=== PATIENT | female | born 1945 | race Caucasian/White ===

== ENCOUNTER 2023-09-04 07:20 | Inpatient (IN) | payer MEDICARE, BC, SELFPAY ==
--- NOTE | 2023-08-28 08:08 | HPS.HSE ---
Family Physician
-
Family Physician: KANDI GOMEZ MD
Chief Complaint
-
SOB, fatigue, and dizziness
History of Present Illness
Ms. Mccullough is a very pleasant 78 yof that presents with severe symptomatic aortic stenosis associated with DEJESUS, fatigue, and dizziness. Her echocardiogram from 05/27/2023 is notable for an aortic valve P/M 68/42, DIONISIO 0.86, pk mayito 4.1, DI 0.3, EF
60%, MAC with mild MR, PAP 47. Her cardiac catheterization from 07/18/2023 is significant for top normal filling pressures with no pulmonary hypertension, severe aortic stenosis with mean gradient 38 mmHg and calculated DIONISIO 0.7 cm�, no CAD. From a
symptomatology standpoint, Ms. Mccullough describes a progressive increase in SOB and fatigue. She is unable to climb stairs or walk a distance without needing to stop and rest. Ms. Wheeler also c/o of intermittent dizziness d/t hx of vertigo. Patient
has been evaluated by the heart team and recommended form TF TAVR utilizing a 29mm Evolut valve. Assessed in preadmission testing and instructed last dose of Xarelto (09/01), Aspirin 325 mg (09/02), aspirin 81 mg (09/03, 09/04), she can also take
levothyroxine (09/04) prior to coming in. Ms. Mccullough (+) UTI and started on 100 mg Macrobid PO BID x 5 days. Instructed to come to the [facility] at 0730. She should expect a phone call from the heart team on Friday (09/03) to confirm time and
location of arrival. Reviewed Risks of procedure as discussed with Dr. Friedman in consult including ppm, stroke, and vascular injury. Allowed for and answered questions.
Medical History
Past Medical History
Past Medical History: Reports Arrhythmia (A-fib), CAD, Hypothyroidism, Valvular Disease (, MR) and Other (arthritis, depression, anxiety)
Past Surgical History: Reports Bowel Resection, Cholecystectomy and Orthopedic ((R) TKR, (R) THR)
Additional Past Surgical History:
cardiac ablation (2016, 2017), Loop recorder
Social History
Tobacco: Former Smoker
Alcohol: Occasional
Drug: None
Living: Alone
Family History
Family History: Not pertinent
Allergies / Home Medications
Allergies reflects when Allergies were last updated in [facility] ([place]).
Home Medications with original date entered in [facility] ([place])
Allergy/Medication List:
PriLOSEC, Crestor, Lexapro, Lipitor, Mevacor, Pravachol: muscle weakness,
PROzac: diarrhea,
Zocor: muscle weakness
Review of Systems
-
History Source: Patient and Family (DAUGHTER)
Constitutional: Reports Fatigue
EENT: Reports No Symptoms
Respiratory: Reports No Symptoms
Cardiac: Reports Chest Pain
Abdomen/GI: Reports No Symptoms
: Reports Other (c/o a 'warm' feeling occasionally when she urinates)
Musculoskeletal: Reports No Symptoms
Neurological: Reports No Symptoms
Psych: Reports Anxiety
Physical Exam
Physical Exam
General: Well Developed, Well Nourished and No Apparent Distress
HEENT: NormoCephalic and Moist mucous membranes
Respiratory: Clear
Cardiac: Regular Rhythm and Murmur (III/ GAYLE)
Breast: Deferred by me
Rectal: Deferred by Provider
Genito-urinary: Deferred by me
Skin: Warm and Dry
Neuro: Awake, Alert and Oriented
Psych: Anxious
Laboratory Results
-
08/21/23 12:00
08/21/23 12:00
Laboratory Results
PT Cancelled 08/21/23 12:00
INR Cancelled 08/21/23 12:00
APTT Cancelled 08/21/23 12:00
Total Bilirubin Cancelled 08/21/23 12:00
AST Cancelled 08/21/23 12:00
ALT Cancelled 08/21/23 12:00
Alkaline Phosphatase Cancelled 08/21/23 12:00
Data Reviewed
-
CT Scan: Report Reviewed by me and Discussed with Physician (TAVR CT scan reviewed with the heart team)
Lab Data: Labs Reviewed by me
Old Records: Reviewed (Drs. Hayes and Idalia's office visit)
Impression/Plan
-
IMPRESSION: Severe Aortic Stenosis
PLAN:
Transfemoral TAVR planned for 09/04/2023
Last dose Xarelto 09/01
Aspirin while Xarelto held (325mg (09/02), 81mg (09/03,09/04). Aspirin will be d/c when xarelto resumed
POD#1 echocardiogram
Cardiac rehab consult.
[2023-08-28 12:17] VITALS: BMI 24.8
[2023-08-28 13:06] LABS: % Basophils 1.4 % (0-2); % Eosinophils 3.8 % (0-6); % Immature Granulocytes 0.4 % (0-0.5); % Lymphocytes 20.4 % (20.5-51.1); % Monocytes 12.3 % (1.7-9.3); % Neutrophils 61.7 % (42.2-75.2); Absolute Basophils 0.1 10^3/uL (0-0.2); Absolute Eosinophils 0.3 10^3/uL (0-0.7); Absolute Lymphocytes 1.6 10^3/uL (1.2-3.4); Absolute Neutrophils 4.8 10^3/uL (1.4-6.5); Hematocrit 26.9 % (37.0-47.0); Hemoglobin 8.9 g/dL (12.0-16.0); Mean Corp Hgb Conc. 33.1 g/dL (33.0-37.0); Mean Corpuscular Hgb 28.5 pg (27.0-31.0); Mean Corpuscular Volume 86.2 fL (81.0-99.0); Mean Platelet Volume 8.7 fL (7.4-10.4); Nucleated Red Blood Cells % 0 %; Platelet Count 254 10^3/uL (130-400); Red Blood Cell Count 3.12 10^6/uL (4.20-5.40); Red Cell Dist. Width 14.2 % (11.5-14.5); White Blood Cell Count 7.8 10^3/uL (4.8-10.8)
[2023-08-28 13:07] LABS: Urine Albumin Negative (Neg - Trace); Urine Bilirubin Negative (Negative); Urine Character Clear (Clear); Urine Color Yellow; Urine Glucose Negative (Negative); Urine Ketone Negative (Negative); Urine Leukocyte 2+ (Negative); Urine Nitrite Negative (Negative); Urine Occult Blood Negative (Negative); Urine Urobilinogen Negative (Neg - 1+)
[2023-08-28 13:17] LABS: INR 1.42; PT 17.5 Sec (11.4-14.6)
[2023-08-28 13:19] LABS: ALT (SGPT) 18 U/L (0-35); AST (SGOT) 31 U/L (14-36); Alkaline Phosphatase 119 U/L (38-126); Blood Urea Nitrogen 15 mg/dl (7-17); Calcium 8.7 mg/dl (8.4-10.2); Carbon Dioxide 28 mmol/L (22-30); Chloride 98 mmol/L (98-107); Direct Bilirubin 0.5 mg/dl (0.0-0.4); Estimated Creatinine Clearance 57 ml/min; Glucose 93 mg/dl (70-99); Potassium 4.1 mmol/L (3.5-5.1); Sodium 132 mmol/L (135-145); Total Bilirubin 0.5 mg/dl (0.2-1.3); Total Protein 5.4 g/dl (6.3-8.2); eGFR > 60.00
[2023-08-28 13:27] LABS: NT-proBNP 931 pg/ml
[2023-08-28 14:06] LABS: Urine Bacteria Moderate (Negative); Urine Red Blood Cell 0-2 /HPF (0-2)
[2023-08-28 14:17] LABS: Glycohemoglobin (HgbA1c) 5.3 % (4.0-5.6)
--- NOTE | 2023-08-28 14:19 | CM ---
Met with Mrs. Mccullough and her daughter in [facility]'s. She states prior to admission she resides alone in a cottage with one step to enter. She resides at [facility]. She resides in the independent section of [facility]. She
states prior to admission she is independent with ambulation in the cottage but uses a single point cane in the community. She states she is independent with ADLS. She states she has a single point cane, walker and rollator at home. She states
she has a prescription plan and uses [facility]. The discharge plan is to return home with a home visit by the Cardiothoracic Transitional Care Nurse when medically stable.
We reviewed pre-op and post-op routines. We reviewed the shower instructions. She has the shower instructions, soap and the TAVR Educational Booklet. We also reviewed restrictions including driving and lifting restrictions. We also discussed a
home visit by the Cardiothoracic Transitional Care Nurse. She is agreeable to a home visit. The plan is for TAVR on 09/04/23.
[2023-09-04] VITALS (25 sets, daily range): BP systolic 100–167; BP diastolic 75–109; BMI 24.3
[2023-09-04] MEDS: STERILE WATER FOR INJECTION 16 ML IV (09:50)
[2023-09-04] MEDS: ZINACEF 1500 MG IV (09:50)
[2023-09-04 11:10] LABS: ACT-LR - POC 279 Seconds (116-155)
[2023-09-04 11:27] LABS: ACT-LR - POC 268 Seconds (116-155)
[2023-09-04 11:38] LABS: ACT-LR - POC 277 Seconds (116-155)
--- NOTE | 2023-09-04 11:45 | CM ---
Chart reviewed. Patient is in the OR today. Patient is independent of ADLS, lives in the Independent Living at [facility], ambulates with a SPC in the community and also has a walker and rollator at home if needed. Plan is
for the patient to return home with CT Transitional RN. CM to follow
--- NOTE | 2023-09-04 11:54 | ITS.CL.TAVR ---
Cv Tech - TAVR Report
TAVR PRocedure
Procedure Report:
TRANSCATHETER AORTIC VALVE REPLACEMENT REPORT
Date: 09/04/2023
Referring physician: Damaris Hassan MD
Operators: Oscar Tee MD, George Escobar MD
Procedure: Conscious sedation was provided by anesthesia. Due to a low left coronary height of 9.6 mm, we planned to protect the left main coronary with a guide catheter, guide liner coronary guidewire down the LAD. Our plan was to put the pigtail
catheter via left radial artery access then the coronary guide catheter via left femoral artery access and the device via right femoral artery access.
Using a micropuncture technique, arterial access was obtained in the left radial artery. We were unable to advance the soft guidewire more than 40-50 mm and removed the wire and held manual pressure. We then reattempted and easily obtained brisk
arterial flow but once again could not advance the soft guidewire more than about 50 mm and decided to abandon the left radial artery approach. We decided to place dual 6 Gibraltarian sheaths in the left femoral artery. A 6 Gibraltarian sheath was placed in
the left femoral artery using the micropuncture technique and angiography demonstrated a superior common femoral artery puncture site. A 6 Gibraltarian left femoral venous sheath was placed. At this point we placed a second 6 Gibraltarian sheath in the left
femoral artery using a more inferior common femoral artery site for puncture.
6F LFV and LFA sheaths were placed. Injection into the LFA sheath was performed to confirm a common femoral artery puncture site. A transvenous pacemaker was placed into the RV apex with excellent thresholds. A pigtail catheter was advanced to the
aortic root and low-volume injections performed to identify a co-planer angle for valve deployment. Access was then obtained in the RFA using the micropuncture technique. Injection into the RFA sheath was performed to confirm a common femoral artery
puncture site. Heparin XX units was administered. At this point, two Perclose sutures were preset using the preclose technique. We then placed an 8 Gibraltarian sheath. A 14 Gibraltarian sheath was exchanged into the RFA.Heparin XX units was administered. The
valve was crossed with an AL 1 diagnostic catheter and a straight wire. A Confida wire was advanced into the LV apex. The 14 F sheath was removed and exchanged for a XXmm Medtronic Evolute pro valve with in-line sheath. The valve was carefully
advanced around the aortic arch and across the valve. Once ideal valve positioning was confirmed, the valve was very slowly deployed with ventricular pacing at 80-100 per minute. The result was evaluated with both aortography and echocardiography
which demonstrated an excellent result. The valve deployment system was removed and the hemostasis achieved with the 2 Perclose sutures and an 8 Gibraltarian Angio-Seal. Angiography of the right iliofemoral system was accomplished and showed no evidence
of significant dissection or perforation with good runoff below the femoral bifurcation. The more superior LFA sheath was removed with a 6 Gibraltarian Angio-Seal. We then did an angiogram showing excellent distal runoff and placed a second Angio-Seal to
close the more distal left common femoral artery puncture site. The pacemaker was removed and the LFV sheath removed with manual compression.
Radiation
Dose (mGy): 459
DAP (cm2.Gy): 30.9
Fluoroscopy time: 6.8 minutes
Conclusion: Successful placement of 29 mm CoreValve Evolute Pro using a right percutaneous transfemoral approach with no acute complications
Oscar Tee M.D.
Copy : Damaris Hassan MD, Sandra Luevano MD
--- NOTE | 2023-09-04 11:54 | W.CVOR.SURPR ---
CVOR Surgeon Immed Pre Op
-
I have examined this patient prior to performance of the scheduled procedure.
The patient's condition is unchanged from the time of the dictated/written History and
Physical and the patient is able to undergo the scheduled procedure.
--- NOTE | 2023-09-04 11:55 | W.IMMPOSTOP ---
Surgical Immed Post Op Note
-
Dictated: [id number]
STRUCTURAL HEART PROCEDURE NOTE: TAVR
Preoperative Dx:
Severe aortic stenosis (P/M 68/42, DIONISIO 0.9), moderate AI
Mild MR
AF
Hypothyroidism
GERD
Anxiety
Postoperative Dx:
Same
Procedures:
1) L CFV access w/ fluoroscopic guidance, micropuncture technique, 6Fr sheath placement
2) L ASSOCIATE PROFESSOR OF AUTOMATION access w/ tactile & fluoroscopic guidance, micropuncture technique, 6Fr sheath placement, limited angiography
3) Attempted L RA access (aborted)
4) L ASSOCIATE PROFESSOR OF AUTOMATION (lower) access w/ tactile & fluoroscopic guidance, micropuncture technique, 6Fr sheath placement
5) Placement of temporary RV pacing wire, threshold testing
6) Placement of pigtail catheter in NCC w/ aortography & confirmation of near-cusp overlap view
7) R ASSOCIATE PROFESSOR OF AUTOMATION access w/ fluoroscopic guidance, micropuncture technique, 8Fr dilator placement, limited angiography
8) Perclose placement x 2 into R ASSOCIATE PROFESSOR OF AUTOMATION, 8Fr sheath placement
9) Serial dilation of R ASSOCIATE PROFESSOR OF AUTOMATION w/ placement of 14Fr COOK sheath (systemic heparinization)
10) Fluoroscopic inspection of TAVR valve
11) Protection of LM coronary via lower L ASSOCIATE PROFESSOR [employer] AUTOMATION access
12) Wire purchase across stenotic AV (AL-1, soft-tip straight, J-wire, pigtail, riveraerquist) w/ LVEDP assessment (20mmHg)
13) R TF TAVR w/ placement of 29mm EVOLUT FX (single deployment)
14) Completion aortography
15) Completion TTE (mean gradient 6mmHg, no AI/PVL)
16) Removal of coronary protection
17) Removal of yjyja-vfdxgxjy-wwyxqb w/ R ASSOCIATE PROFESSOR OF AUTOMATION mgmt w/ perclose sutures x 2, 8Fr angioseal, manual pressure; completion angiography
18) Removal of lower L ASSOCIATE PROFESSOR [employer] AUTOMATION access w/ mgmt w/ 6Fr angioseal, manual pressure; completion angiography through upper L ASSOCIATE PROFESSOR OF AUTOMATION access
19) Removal of upper L ASSOCIATE PROFESSOR OF AUTOMATION access w/ mgmt w/ 6Fr angioseal, manual pressure
20) Removal of temporary pacing wire, L CFV sheath w/ manual pressure (protamine)
Critical Care Cns:
Dr. Flaquito Tee
Cardiac Surgeon:
Dr. George Escobar
Anesthesia:
MAC & local to B/L groins
Implants:
Perclose sutures x 2
8Fr angioseal x 1
6Fr angioseal x 2
Medtronic Evolut FX 29mm valve; SN: [id number]
Cath Data:
Start: 1029hrs, Deploy: 1128hrs, End: 1148hrs
FT: 11.9min, mGy: 188.21, DAP: 26.1439, Contrast: 103mL
Post TTE: mean gradient 6mmHg, no AI/PVL
Condition:
Stable/guarded to recovery
--- NOTE | 2023-09-04 12:23 | W.PN.UPDATE ---
Update Note
Progress Note Update
Reviewed Ms. Mccullough with the heart team in the preTAVR SDM meeting and confirmed a 29mm Evolut via transfemoral access. Patient will resume Xarelto post TAVR. LVEDP 21mmHg. #29mm Evolut (serial# [id number]) successfully deployed via right transfemoral
access. Post implant MG 6mmHg.
[2023-09-04] MEDS: STERILE WATER FOR INJECTION IV (12:57)
[2023-09-04] MEDS: ZINACEF IV (12:57)
--- NOTE | 2023-09-04 13:30 | PTCARENOTE ---
Pt received from open hearth laborer s/p TAVR. Pt assisted from stretcher to IVU bed. Pt drowsy but oriented x4. CYR with equal strength in all extremities. No facial droop or tongue deviation. PERRLA 3mm brisk bilaterally. SR with 1st degree AVB with rates in
the 60s. BP stable 122/80. +murmur. Bilateral radial and DP pulses palpable. Trace edema in b/l lower extremities. POX 98% on RA. Lungs clear. Abdomen soft, nontender. +BS. DTV for this RN. Tolerating sips of water and ice chips. Right groin
dressing CDI, small moveable lump unchanged from open hearth laborer RN's assessment. Left groin dressing CDI and soft. Pt c/o 12/21 back pain-see MAR. Denies nausea. Right AC 20g PIV intact. Pt's daughter at bedside. See MAR for medication administration. See
worklist for complete nursing assessment. Plan of care and expected ambulation time reviewed with patient and daughter.
[2023-09-04] MEDS: TYLENOL 650 MG PO (13:42)
[2023-09-04] MEDS: NEURONTIN 200 MG PO ×2 (16:11→21:19)
[2023-09-04] MEDS: DILAUDID 0.25 MG IV (16:11)
[2023-09-04] MEDS: PACERONE 100 MG PO (17:25)
[2023-09-04] MEDS: STERILE WATER FOR INJECTION 8.30000000000000071 ML IV (17:25)
[2023-09-04] MEDS: LAMICTAL 25 MG PO (17:25)
[2023-09-04] MEDS: ZINACEF 750 MG IV (17:26)
[2023-09-04] MEDS: LASIX PO (20:04)
[2023-09-04] MEDS: PROTONIX 40 MG PO (21:19)
[2023-09-04] MEDS: PEPCID 40 MG PO (21:19)
[2023-09-05] VITALS (13 sets, daily range): BP systolic 82–139; BP diastolic 52–77; BMI 24.4
[2023-09-05] MEDS: REFRESH EYE DROPS (PF) 1 DROPS BOTH EYES (00:42)
[2023-09-05] MEDS: TYLENOL 650 MG PO ×2 (03:37→19:33)
[2023-09-05] MEDS: XANAX 0.25 MG PO ×2 (03:39→20:14)
[2023-09-05 03:52] LABS: Hematocrit 22.6 % (37.0-47.0); Hemoglobin 7.4 g/dL (12.0-16.0); Mean Corp Hgb Conc. 32.7 g/dL (33.0-37.0); Mean Corpuscular Hgb 27.6 pg (27.0-31.0); Mean Corpuscular Volume 84.3 fL (81.0-99.0); Mean Platelet Volume 9.1 fL (7.4-10.4); Platelet Count 213 10^3/uL (130-400); Red Blood Cell Count 2.68 10^6/uL (4.20-5.40); Red Cell Dist. Width 14.5 % (11.5-14.5); White Blood Cell Count 7.3 10^3/uL (4.8-10.8)
--- NOTE | 2023-09-05 03:52 | PTCARENOTE ---
Pt. remains AAOx3, neurochecks WNL, VSS. Bilateral femoral dressing CDI with no S&S hematoma, pedal pulses palpable. No complaints CP, does have generalized weakness with ambulation (assist x 1 with quad cane). NSR on the monitor with frequent
PVC's/PAC's, rate 40's-80's. Michael Valetnine notified of bradycardia and ectopy, came to bedside to assess, magnesium level added to AM labs, Cardizem PO placed on hold. Pt. also visibly anxious/complaining of anxiety, Xanax ordered and
administered. Pt. currently sleeping.
[2023-09-05 04:08] LABS: Blood Urea Nitrogen 9 mg/dl (7-17); Calcium 8.1 mg/dl (8.4-10.2); Carbon Dioxide 25 mmol/L (22-30); Chloride 108 mmol/L (98-107); Estimated Creatinine Clearance 65 ml/min; Glucose 92 mg/dl (70-99); Magnesium 2.1 mg/dl (1.6-2.3); Sodium 133 mmol/L (135-145); eGFR > 60.00
--- NOTE | 2023-09-05 05:19 | W.PN.CT ---
Addendum entered and electronically signed by George Escobar MD 09/05/23 08:02:
I saw and examined the patient.
The PA's note was reviewed and I agree with the note.
Comment:
POD#1
No major overnight events. New RBBB w/ bradycardia. AVSS. Groins OK. CXR: clear w/ chronic elevation of right hemidiaphragm. 7.3>7.4 (8.9)<213; 9/0.7
- Transfuse 1U PRBC
- Echocardiogram today
- Xarelto only anticoagulation
- Hold Cardizem, hold amiodarone
- Will arrange for outpt HR monitor on D/C
- Would hold on D/C today, hopefully tomorrow
Original Note:
Today's Communication / Plan
-
-pod #1
-c/o dizziness walking to the bathroom this am, reported feeling anxious. BP was ok 108/60
-Rhythm noted to be sinus sally 48 bpm with PVCs, PACs (few non-conducted PACs), no significant pauses- will hold am Cardizem and discuss with Cardiology
-new RBBB post TAVR and pre-existing 1st degree AVB
-h/h 7.4/22.6 today (8.9/26.9 preop)- consider 1 pRBC. Groins are stable, soft, no hematoma b/l
-Echo today
-current meds (Xarelto, Lasix 40 bid, Amio 100 hs, Protonix). Will hold Cardizem CD in am for sally 40s
-encourage IS, OOB, ambulate
-possible d/c
Assessment / Plan
-
- Severe symptomatic - s/p R TF TAVR w/ placement of 29mm Medtronic EVOLUT FX (single deployment) on 09/04/23, pod #1
- Post TTE: mean gradient 6mmHg, no AI/PVL
- Mild MR
- Paroxysmal a-fib, s/p CV/ablation x2 - on Xarelto and Amio preop
- Pre-existing 1st degree AVB
- Chronic diastolic CHF
- Hypothyroidism
- GERD
- Anxiety
- Hard of hearing, wears hearing aides
- Hx tobacco, quit 1980
- Acute postop RBBB
Discussed patient care with: Nursing and Care Team
Subjective
Procedure
s/p R TF TAVR w/ placement of 29mm Medtronic EVOLUT FX (single deployment) on 09/04/23
-
Date of Service: September 05, 2023
Objective Data
-
PT 17.5 Sec (11.4-14.6) H 08/28/23 12:46
INR 1.42 08/28/23 12:46
APTT 42.0 Sec (23.4-35.0) H 08/28/23 12:46
Vital Signs
Vital Signs
Temp Pulse Resp BP Pulse Ox
97.8 F 85 20 131/83 97
09/04/23 23:02 09/04/23 23:00 09/04/23 23:02 09/04/23 22:49 09/04/23 23:39
CT Intake/Output/Weight
09/04/23 09/04/23 09/05/23
06:59 18:59 06:59
Intake Total 2290 / 2290
Output Total 300 / 300
Balance 1989
SaO2: 97
Physical Exam
-
General: Awake and AOx3
Cardiovascular: Regular rate & rhythm, Murmur (1/6 syst @ lsb) and No Rub
Respiratory: Rales (at L base. No wheeze)
Incision: Other (groins are cdi, soft, nontender, no hematoma b/l)
Extremities: Edema +1 (2+ DP b/l)
Data Reviewed
-
Lab Results: Results Reviewed
Medications: Active Meds Reviewed
Chest X-Ray: Report Reviewed and Image Reviewed
ECG: Report Reviewed and Image Reviewed
--- NOTE | 2023-09-05 07:28 | W.PN.ANS.POP ---
Anesthesia Post Operative
- Anesthesia Post Op Note
Vital Signs Stable-See Nursing Note: Yes
Airway Patent: Yes
Adequate Pain Control: Yes
Change in Mental Status: No
Current Postoperative Nausea & Vomiting: No
Anesthesia Complications: No
General Anesthetic Recall: No
Unplanned Admission: No
Post Op Hydration Adequate: Yes
[2023-09-05] MEDS: PROTONIX 40 MG PO ×2 (07:56→19:33)
[2023-09-05] MEDS: LAMICTAL 50 MG PO (07:56)
[2023-09-05] MEDS: THERAGRAN 1 TABLET PO (07:56)
[2023-09-05] MEDS: VITAMIN D3 (cholecalciferol) PO (09:52)
[2023-09-05] MEDS: NEURONTIN PO (09:52)
[2023-09-05] MEDS: LASIX PO ×2 (09:53→19:31)
[2023-09-05] MEDS: SYNTHROID 50 MCG PO (12:59)
--- NOTE | 2023-09-05 13:20 | ITS.CL.PACE ---
Marketing Reporting Analyst - Pacemaker Implant
Pacemaker Implant
Procedure Report:
Date of Procedure: September 05, 2023.
Procedure: Dual chamber conduction system (Left Bundle Branch area) Pacemaker Implantation. Left upper extremity venogram. Loop explant.
Indication: The pacemaker is for the treatment of nonreversible symptomatic bradycardia due to second degree atrioventricular block. Yesterday the patient underwent placement of 29 mm CoreValve Evolute Pro�Medtronic transcatheter aortic valve
complicated by first-degree AV block and right bundle branch block with pre-existing left axis deviation. Conduction system disease progressed. She developed persistent 2 to 1 AV block that was symptomatic.
Performing physician: Jordin King MD, [facility].
Implants:
Pulse Generator: Ipracom; Model# W1DR01; Serial# [id number].
RA Lead: Medtronic; Model# 5076-52cm; Serial# [id number].
RV Lead: Medtronic; Model# 3830-69cm; Serial# [id number].
Explanted loop monitor: Ipracom, Linq, Model LNQ11, serial# [id number].
Technique: A time out was performed. A 10 mL upper extremity venogram demonstrated patent left axillary, cephalic, and subclavian veins. The procedure site was identified. The patient was anesthetized by the anesthesia service. Preoperative
cefazolin was administered. The patient was prepped and draped in the usual fashion. Local anesthetic was applied to the left prepectoral subcutaneous tissue. A 3 inch incision was made along the left deltopectoral groove. Dissection was carried to
the fascia. The left cephalic vein was easily isolated and proximal and distal control with 2-0 Vicryl suture. Using a micropuncture needle to access the cephalic vein under direct visualization a hydrophilic wire was advanced into the central
circulation. A 7 Fr introducer was placed to allow a 0.35 J wire to be advanced alongside the glidewire. The leads were introduced with hemostatic peel away introducer sheaths using a retained guidewire technique. The [address] at
the RV apical septum to assure continuous ability to pace the ventricle given her progressing heart block. The RV lead was placed using utilizing the Ipracom His delivery catheter ([id number]) that was advanced to the left bundle area as confirmed by
fluoroscopy in the MARILYN and LEPE projections. The lead tip was advanced. PVC morphology was reviewed. When a satisfactory location was identified the lead was screwed into position with serial turns. After each series of turns unipolar sensed
morphology and impedance, and paced morphology of V1 was analyzed. The best location had a Qr pattern of the paced QRS but PVCs never had classic W pattern. Several sites were tried. Advancing the lead to the more inferior septum proved
challenging. The best left bundle area spot that was accepted for final location had an initial LVAT of less than 90 ms. The ventricular lead was secured to the pectoralis muscle and fascia with two 0-silk sutures. The atrial lead was then freed
from the RV midseptum and placed in the right atrial appendage. 8 volt pacing did not capture the diaphragm. The atrial lead was secured to the pectoralis muscle and fascia with two 0-silk sutures. A subcutaneous pocket was created with Bovie
cautery. Hemostasis was excellent.The leads were appropriately attached to the device. The pocket was irrigated with antibiotic solution. The device and leads were placed in the pocket. The incision was closed in three layers with absorbable suture.
Steri-strips and an Aquacel dressing were placed. Finally attention was turned to the old loop monitor. An incision was made over the superior aspect of the loop device. Dissection was carried to the capsule. The capsule was entered. The loop
device was explanted. The pocket appeared normal. Hemostasis was excellent. The pocket was irrigated saline. The incision was closed with 4-0 Monocryl suture. The skin was closed with steri-strips. Estimated blood loss was 5 ml. There were no
complications. Fluoroscopy time: 6.5 minutes and DAP 1.45 GyCM2. The device was then interrogated after skin closure.
Lead Analysis:
RA lead: P: 2.3 mV; Threshold: 1 V @ 0.4 ms; Impedance: 530 ohms.
RV lead: R: 2.7 mV; Threshold: 0.75 V @ 0.4 ms; Impedance: 580 ohms.
Final Programming: DDDR 60-130 bpm.
Conclusion: Uncomplicated Medtronic pacemaker implant. The pacing system is MRI conditional.
Recommendation: Routine post pacemaker care.
cc: Damaris Hassan MD; Sandra Luevano MD; Oscar Tee MD, [facility], [facility], and George Escobar MD.
--- NOTE | 2023-09-05 14:01 | CM ---
CM following for DC planning needs.
Pt. POD#1 from TAVR.
Attempted to meet w/ patient this AM, patient was not at bedside.
Reviewed DC plan for home w/ CT Transitional Care RN.
CM to cont. to follow.
[2023-09-05] MEDS: LAMICTAL 25 MG PO (17:09)
[2023-09-05] MEDS: NEURONTIN 200 MG PO ×2 (17:12→22:11)
[2023-09-05] MEDS: ANCEF 5 IV (17:47)
[2023-09-05] MEDS: ATARAX 100 MG PO (19:33)
--- NOTE | 2023-09-05 21:33 | PTCARENOTE ---
Left chest wall Aquacel w/ small drainage present. 09/20 pain- Tylenol given per SEP. B/L groin CDI. and midsternal- gauze/Tegaderm w/ small amount of drainage as well. + pedal pulses. Pt expressing some anxiety- PA Tsilinia in to see pt- x1 dose of
Xanax given. Pt ambulating in the room as a x1 assist with a quad cane. SR/MANAGER REPORT on the monitor in the 80s.
[2023-09-05] MEDS: PEPCID 40 MG PO (22:10)
[2023-09-06] MEDS: ANCEF 5 IV (03:00)
--- NOTE | 2023-09-06 04:31 | W.PN.CT ---
Addendum entered and electronically signed by George Escobar MD 09/06/23 09:43:
I saw and examined the patient.
The PA's note was reviewed and I agree with the note.
Comment:
POD#2 s/p R TF TAVR (29 Coy)
POD#1 s/p PPM
No major overnight events. Tm 98.3. 77 sinus w/ intermittent V-pacing. 114/67. 98% RA. No gtts. Groin sites OK. UO: spontaneous, adequate. Tolerating PO. Neuro: intact. 11.7>9.0 (from 7.4 s/p 1U PRBC)<175; 9/0.6. ECHO: mean gradient
11mmHg.
- D/C home today
- Xarelto tonight
- Resume home medications
Original Note:
Today's Communication / Plan
-
-pod #2
-no issues overnight
-in nsr with v-pacing 70s
-mean pressure gradient across TAVR� is increased from 6 mmHg to 11 mmHg on Echo 09/05
-s/p 1 pRBC 09/05 for Hg 7.4
-labs pending
-Xarelto is ordered to start 09/07
-will restart Cardizem for paf
-ambulate, encourage IS
-likely d/c home
Assessment / Plan
-
- Severe symptomatic - s/p R TF TAVR w/ placement of 29mm Medtronic EVOLUT FX (single deployment) on 09/04/23, pod #2
- Post TTE: mean gradient 6mmHg, no AI/PVL
- S/p placement of Medtronic pacer on 09/05/23, pod #1
- Mild MR
- Paroxysmal a-fib, s/p CV/ablation x2 - on Xarelto and Amio preop
- Pre-existing 1st degree AVB
- Chronic diastolic CHF
- Hypothyroidism
- GERD
- Anxiety
- Hard of hearing, wears hearing aides
- Hx tobacco, quit 1980
- Acute postop RBBB, bradycardia
- Acute postop blood loss anemia- s/p 1 pRBC on 09/05/23
- Echo post TAVR 09/05/23:
�Normal left ventricular size, wall thickness and systolic function. No regional wall motion abnormalities are seen. LV ejection fraction is 60-65% by visual�assessment. Normal diastolic function.
�Thickened mitral valve leaflets. Mitral valve opens normally.� There is mild posterior mitral valve prolapse.� Mild to moderate mitral regurgitation.
�S/p TAVR, 29mm evolut pro, well seated with peak/mean gradients across the aortic valve of 22/11 mmHg.� Trace aortic regurgitation is seen.
�Tricuspid valve opens normally. Mild to moderate tricuspid regurgitation. Estimated pulmonary artery pressure of 33 mmHg, assuming a right atrial�pressure of 3 mmHg.
�Since echocardiogram 09/04/2023, there is no significant change.� Mean pressure gradient across TAVR� is increased from 6 mmHg to 11 mmHg.
Discussed patient care with: Nursing and Care Team
Subjective
Procedure
s/p R TF TAVR w/ placement of 29mm Medtronic EVOLUT FX (single deployment) on 09/04/23
-
Date of Service: September 06, 2023
Objective Data
-
PT 17.5 Sec (11.4-14.6) H 08/28/23 12:46
INR 1.42 08/28/23 12:46
APTT 42.0 Sec (23.4-35.0) H 08/28/23 12:46
Vital Signs
Vital Signs
Temp Pulse Resp BP Pulse Ox
98.1 F 85 18 114/67 98
09/05/23 22:13 09/05/23 22:10 09/05/23 22:13 09/05/23 22:10 09/05/23 22:13
CT Intake/Output/Weight
09/05/23 09/05/23 09/06/23
06:59 18:59 06:59
Intake Total 480 / 2770 250 / 250
Output Total 300 / 600
Balance 180 / 2170 250 / 250
SaO2: 98
Physical Exam
-
General: Awake and AOx3
Cardiovascular: Regular rate & rhythm, No Murmurs and No Rub
Respiratory: Decreased Breath Sounds
Incision: Other (groins are cdi, soft, nontender, no hematoma b/l. Pacer incision is cdi)
Extremities: Other (trace edema b/l)
Data Reviewed
-
Lab Results: Results Reviewed
Medications: Active Meds Reviewed
Chest X-Ray: Report Reviewed and Image Reviewed
ECG: Report Reviewed and Image Reviewed
[2023-09-06 04:47] VITALS: BP 147/81
[2023-09-06] MEDS: SYNTHROID 50 MCG PO (04:54)
[2023-09-06 06:00] VITALS: BMI 24.6
[2023-09-06 06:02] LABS: Hematocrit 26.6 % (37.0-47.0); Mean Corp Hgb Conc. 33.8 g/dL (33.0-37.0); Mean Corpuscular Hgb 28.8 pg (27.0-31.0); Mean Platelet Volume 8.9 fL (7.4-10.4); Platelet Count 175 10^3/uL (130-400); Red Blood Cell Count 3.13 10^6/uL (4.20-5.40); Red Cell Dist. Width 14.4 % (11.5-14.5); White Blood Cell Count 11.7 10^3/uL (4.8-10.8)
[2023-09-06 06:33] LABS: Blood Urea Nitrogen 9 mg/dl (7-17); Calcium 8.4 mg/dl (8.4-10.2); Carbon Dioxide 26 mmol/L (22-30); Chloride 107 mmol/L (98-107); Estimated Creatinine Clearance 76 ml/min; Glucose 114 mg/dl (70-99); Magnesium 2.2 mg/dl (1.6-2.3); Potassium 4.1 mmol/L (3.5-5.1); Sodium 133 mmol/L (135-145); eGFR > 60.00
[2023-09-06 07:00] VITALS: BP 142/85
[2023-09-06] MEDS: TYLENOL 650 MG PO ×4 (07:29→21:41)
[2023-09-06] MEDS: NEURONTIN 200 MG PO ×3 (07:29→21:40)
[2023-09-06] MEDS: THERAGRAN 1 TABLET PO (07:29)
[2023-09-06] MEDS: LAMICTAL 50 MG PO (07:30)
[2023-09-06] MEDS: CARDIZEM CD 120 MG PO (07:30)
[2023-09-06] MEDS: VITAMIN D3 (cholecalciferol) 50 MCG PO (07:30)
[2023-09-06] MEDS: PROTONIX 40 MG PO (07:30)
[2023-09-06] MEDS: LASIX 40 MG PO (07:30)
[2023-09-06 09:59] VITALS: BP 131/96
--- NOTE | 2023-09-06 10:13 | W.DCSUMMARY ---
Addendum entered and electronically signed by MARLIN Ventura 09/07/23 08:02:
Discharge cancelled
Original Note:
Documented by User: MARLIN Kearney 09/05/23 08:14
Discharge Summary
Discharge Data
Date of Admission: 09/04/23
Date of Discharge: 09/06/23
-
Pending Results: No
Hospital Course
Primary care physician: Sandra Gomez
Outpatient integrity assessor: Damaris Hassan
Inpatient consultants: [facility] Cardiology
Procedures:
1. Right transfemoral aortic valve replacement #29 Medtronic Evolute FX
Primary Diagnosis:
1. Severe aortic stenosis
Secondary Diagnoses:
1. Chronic atrial fibrillation status post cardioversion and ablation x 2 on Xarelto at home
2. Hypothyroidism
3. Anxiety
4. GERD
HPI: Denisa Mccullough is a 78-year-old female electively admitted 09/04/2023 for TAVR.
Hospital course: Mrs. Mccullough underwent right transfemoral TAVR #[address] Medtronic Ev[address] Escobar using conscious sedation. Patient initially on Levophed and was weaned off in the PACU. Patient had urinary retention requiring straight
cathed for 600 cc. Patient did develop new right bundle branch block and has old first-degree AV block. Patient able to urinate spontaneously on 09/05. Hemoglobin decreased from 8 9 preop to 7.4 requiring transfusion with 1 unit packed red blood
cells.
Home medication changes:
Discharge Plan
-
Patient Disposition: Home (Routine Discharge)
Discharge Diagnosis/Procedures: TF TAVR, Pacemaker
Condition: Fair
Diet: Low Fat and 2 Gram Sodium
Activity: As tolerated
Driving Restrictions: No driving for 1 week
Bathing Restrictions: OK to Shower
Others Tests: Please schedule 30-day follow up echo with Dr. Hayes's office.
Other Services: Cardiac Rehab
Wound Care: No lotions, powders, or creams to puncture sites
Specialty Instructions: Weigh Daily- Call MD for wt gain/loss 3 lbs overnight/5 lbs in 1 week
Activity Restrictions/Additional Instructions:
Resume Xarelto on Friday night
Stand Alone Forms: DC Inst - Implanted Device
Referrals:
CT Transitional Care Nurse [Outside] (The Cardiothoracic Transitional Care Nurse will call you to set up a visit in 1-2 days.)
Damaris Hassan MD [Non-Admitting Privileges] - 10/14/23 7:40 am
SANDRA GOMEZ MD [Family Provider] -
Prescriptions:
Continued
furosemide 40 mg Tablet
40 mg PO BID
rabeprazole 20 mg Tablet,Delayed Release (Dr/Ec)
20 mg PO BID
famotidine 40 mg Tablet
40 mg PO HS
lamotrigine [Lamictal] 25 mg Tablet
25 mg PO QPM
levothyroxine 50 mcg Tablet
50 mcg PO DAILY
buspirone 7.5 mg Tablet
7.5 mg PO TID
diltiazem HCl [Cartia XT] 120 mg Capsule,Extended Release 24hr
120 mg PO DAILY
Rx Instructions:
120/24 HR cap
gabapentin 100 mg Capsule
200 mg PO TID
fluticasone propionate [Flonase Allergy Relief] 50 mcg/actuation [place],Suspension
1 spray INTRANASAL BID
amiodarone 100 mg Tablet
100 mg PO QPM
azelastine-fluticasone 137-50 mcg/spray [place],Non-Aerosol
1 spray INTRANASAL BID
multivitamin Tablet
1 tab PO DAILY
hydroxyzine HCl 50 mg Tablet
100 mg PO DAILYPRN PRN (Reason: anxiety)
cholecalciferol (vitamin D3) [Vitamin D3] 50 mcg (2,000 unit) Capsule
50 mcg PO DAILY
Probiotic
1 tab PO DAILY
lamotrigine 25 mg Tablet
50 mg DAILY
Systane (PF) drops
1 drp BOTH EYES QID PRN (Reason: dry eye)
Rx Instructions:
to both eyes for dry eye
Held
Xarelto 15 mg Tablet
15 mg PO QPM
Hold Instructions: Resume on 09/07/23. Restart friday night
Discharge Orders:
Discharge Patient (As Directed); Ordered 09/06/23
Ordered By: Angela Hou
Care Plan Goals
Care Plan Goals:
Problem: Readiness for enhanced knowledge related to diagnosis and treatment plan
Goal: Understand your diagnosis and treatment plan needs, including medications if applicable.
Instructions: Know your diagnosis, underlying causes and treatment plan options, including medications if applicable. Consult with your health care team to learn about your diagnosis and treatment plan, including medications if applicable.

Documented by User: MARLIN Ventura 09/06/23 10:20
Discharge Summary
Discharge Data
Date of Admission: 09/04/23
Date of Discharge: 09/06/23
Total time spent discharging patient (in min): 35
Hospital Course
Primary care physician: Sandra Gomez
Outpatient integrity assessor: Damaris Hassan
Inpatient consultants: [facility] Cardiology
Procedures:
1. Right transfemoral aortic valve replacement #29 Medtronic Evolute FX
Primary Diagnosis:
1. Severe aortic stenosis
Secondary Diagnoses:
1. Chronic atrial fibrillation status post cardioversion and ablation x 2 on Xarelto at home
2. Hypothyroidism
3. Anxiety
4. Gastro esophageal reflux disease
HPI: Denisa Mccullough is a 78-year-old female electively admitted 09/04/2023 for Transcatheter aortic valve replacement.
Hospital course: Mrs. Mccullough underwent right transfemoral TAVR #29 Medtronic Evolute FX with Dr. Escobar using conscious sedation. Patient initially on Levophed and was weaned off in the PACU. Patient had urinary retention requiring straight
cathed for 600 cc. Patient did develop new right bundle branch block and has old first-degree AV block. Patient able to urinate spontaneously on 09/05. Hemoglobin decreased from 8 9 preop to 7.4 requiring transfusion with 1 unit packed red blood
cells. On post-op day #1, patient was found to be bradycardic so cardiology placed a medtronic PPM. follow TTE post TAVR showed that the valve was well seat with peak/mean gradients across the aortic valve of 22/11mmHg. On post-op day #2, pacer and
b/l groin sites were stable, hemoglobin was stable this am. Restarted home medicationsShe was deemed stable for discharged.
Home medication changes:
none
Discharge Plan
-
Patient Disposition: Home (Routine Discharge)
Discharge Diagnosis/Procedures: TF TAVR, Pacemaker
Condition: Fair
Diet: Low Fat and 2 Gram Sodium
Activity: As tolerated
Driving Restrictions: No driving for 1 week
Bathing Restrictions: OK to Shower
Others Tests: Please schedule 30-day follow up echo with Dr. Hayes's office.
Other Services: Cardiac Rehab
Wound Care: No lotions, powders, or creams to puncture sites
Specialty Instructions: Weigh Daily- Call MD for wt gain/loss 3 lbs overnight/5 lbs in 1 week
Activity Restrictions/Additional Instructions:
Resume Xarelto on Friday night
Stand Alone Forms: DC Inst - Implanted Device
Referrals:
CT Transitional Care Nurse [Outside] (The Cardiothoracic Transitional Care Nurse will call you to set up a visit in 1-2 days.)
Damaris Hassan MD [Non-Admitting Privileges] - 10/14/23 7:40 am
SANDRA GOMEZ MD [Family Provider] -
Prescriptions:
Continued
furosemide 40 mg Tablet
40 mg PO BID
rabeprazole 20 mg Tablet,Delayed Release (Dr/Ec)
20 mg PO BID
famotidine 40 mg Tablet
40 mg PO HS
lamotrigine [Lamictal] 25 mg Tablet
25 mg PO QPM
levothyroxine 50 mcg Tablet
50 mcg PO DAILY
buspirone 7.5 mg Tablet
7.5 mg PO TID
diltiazem HCl [Cartia XT] 120 mg Capsule,Extended Release 24hr
120 mg PO DAILY
Rx Instructions:
120/24 HR cap
gabapentin 100 mg Capsule
200 mg PO TID
fluticasone propionate [Flonase Allergy Relief] 50 mcg/actuation [place],Suspension
1 spray INTRANASAL BID
amiodarone 100 mg Tablet
100 mg PO QPM
azelastine-fluticasone 137-50 mcg/spray [place],Non-Aerosol
1 spray INTRANASAL BID
multivitamin Tablet
1 tab PO DAILY
hydroxyzine HCl 50 mg Tablet
100 mg PO DAILYPRN PRN (Reason: anxiety)
cholecalciferol (vitamin D3) [Vitamin D3] 50 mcg (2,000 unit) Capsule
50 mcg PO DAILY
Probiotic
1 tab PO DAILY
lamotrigine 25 mg Tablet
50 mg DAILY
Systane (PF) drops
1 drp BOTH EYES QID PRN (Reason: dry eye)
Rx Instructions:
to both eyes for dry eye
Held
Xarelto 15 mg Tablet
15 mg PO QPM
Hold Instructions: Resume on 09/07/23. Restart friday night
Discharge Orders:
Discharge Patient (As Directed); Ordered 09/06/23
Ordered By: Angela Hou
Care Plan Goals
Care Plan Goals:
Problem: Readiness for enhanced knowledge related to diagnosis and treatment plan
Goal: Understand your diagnosis and treatment plan needs, including medications if applicable.
Instructions: Know your diagnosis, underlying causes and treatment plan options, including medications if applicable. Consult with your health care team to learn about your diagnosis and treatment plan, including medications if applicable.
--- NOTE | 2023-09-06 11:11 | W.PN.UPDATE ---
Update Note
Progress Note Update
CXR, tele, ekg, pacer site all good.
OK for home.
--- NOTE | 2023-09-06 13:34 | W.PN.UPDATE ---
Addendum entered and electronically signed by Jordin King MD 09/06/23 13:52:
CT Surgery PA and Dr. Escobar updated by me.
Original Note:
Update Note
Progress Note Update
EP Update:
There has been a change in the 12 lead paced QRS morphology. This could be from lead tip movement deeper into the RV septum with the highest concern for tip perforation and worse would be further movement with loss of tissue contact and then loss
of capture and thrombotic risk if lead entered LV cavity.
I reviewed with colleagues and expert at [facility]. The expert at [facility] suspects that based on the information I was able to provide that the lead tip is not in LV and that reoperation is not warranted.
I will keep the patient, check an Xray today and re-interrogate the device tomorrow.
Family updated
[2023-09-06 15:56] VITALS: BP 151/85
[2023-09-06] MEDS: PACERONE 100 MG PO (17:52)
[2023-09-06] MEDS: LAMICTAL 25 MG PO (17:52)
[2023-09-06] MEDS: REFRESH EYE DROPS (PF) 1 DROPS BOTH EYES (17:54)
--- NOTE | 2023-09-06 18:15 | PTCARENOTE ---
Pt received this am at 10:30. No change in status since as assessment. Pt OOB to the bathroom and to the chair with one assist and her cane. Pt c/o of left chest incisional pain with relief. Pt discharged today but later cancelled after Dr. King
spoke with metronic rep and wanted to keep her another day. Pt sent to CXR as ordered. Monitor remains Vpaced, SR. Heart rate up in the 130's at times. Pt asymptomatic. Dr. King aware.
[2023-09-06] MEDS: LASIX PO (20:19)
[2023-09-06] MEDS: PEPCID 40 MG PO (21:40)
[2023-09-06] MEDS: PROTONIX PO (21:41)
[2023-09-06 21:44] VITALS: BP 111/67
--- NOTE | 2023-09-06 22:49 | PTCARENOTE ---
Pt resting at the beginning of this shift. ambulating to the bathroom as a stand by assistance and quad cane. AAOx3- but flat. L chest wall CDI- Midsternal- gauze remains in place. B/L groins CDI. palpable pulses. neuro check WNL. [employer] on the
monitor. 60s-80s. VSS. POC discussed. Tylenol provided for 3/10 L chest discomfort.
[2023-09-07 03:08] VITALS: BP 124/73
[2023-09-07 03:16] LABS: Hematocrit 25.8 % (37.0-47.0); Hemoglobin 8.9 g/dL (12.0-16.0); Mean Corp Hgb Conc. 34.5 g/dL (33.0-37.0); Mean Corpuscular Hgb 28.5 pg (27.0-31.0); Mean Corpuscular Volume 82.7 fL (81.0-99.0); Mean Platelet Volume 8.7 fL (7.4-10.4); Platelet Count 173 10^3/uL (130-400); Red Blood Cell Count 3.12 10^6/uL (4.20-5.40); Red Cell Dist. Width 14.6 % (11.5-14.5); White Blood Cell Count 12.5 10^3/uL (4.8-10.8)
[2023-09-07] MEDS: TYLENOL 650 MG PO ×2 (03:16→07:19)
[2023-09-07 03:30] LABS: Blood Urea Nitrogen 10 mg/dl (7-17); Calcium 8.4 mg/dl (8.4-10.2); Carbon Dioxide 27 mmol/L (22-30); Chloride 107 mmol/L (98-107); Estimated Creatinine Clearance 65 ml/min; Glucose 92 mg/dl (70-99); Potassium 4.1 mmol/L (3.5-5.1); Sodium 135 mmol/L (135-145); eGFR > 60.00
--- NOTE | 2023-09-07 05:42 | W.PN.CT ---
Addendum entered and electronically signed by George Escobar MD 09/07/23 09:55:
I saw and examined the patient.
The PA's note was reviewed and I agree with the note.
Comment:
D/C planning after EP re-eval today
Original Note:
Today's Communication / Plan
-
-no issues overnight
-Xarelto started 09/07
-Cardizem CD 120 mg
-ambulate, encourage IS
-Discuss with EP about DC
Assessment / Plan
-
- Severe symptomatic - s/p R TF TAVR w/ placement of 29mm Medtronic EVOLUT FX (single deployment) on 09/04/23, pod #3
- Post TTE: mean gradient 6mmHg, no AI/PVL
- S/p placement of Medtronic pacer on 09/05/23, pod #2
- Mild MR
- Paroxysmal a-fib, s/p CV/ablation x2 - on Xarelto and Amio preop
- Pre-existing 1st degree AVB
- Chronic diastolic CHF
- Hypothyroidism
- GERD
- Anxiety
- Hard of hearing, wears hearing aides
- Hx tobacco, quit 1980
- Acute postop RBBB, bradycardia
- Acute postop blood loss anemia- s/p 1 pRBC on 09/05/23
- Echo post TAVR 09/05/23:
�Normal left ventricular size, wall thickness and systolic function. No regional wall motion abnormalities are seen. LV ejection fraction is 60-65% by visual�assessment. Normal diastolic function.
�Thickened mitral valve leaflets. Mitral valve opens normally.� There is mild posterior mitral valve prolapse.� Mild to moderate mitral regurgitation.
�S/p TAVR, 29mm evolut pro, well seated with peak/mean gradients across the aortic valve of 22/11 mmHg.� Trace aortic regurgitation is seen.
�Tricuspid valve opens normally. Mild to moderate tricuspid regurgitation. Estimated pulmonary artery pressure of 33 mmHg, assuming a right atrial�pressure of 3 mmHg.
�Since echocardiogram 09/04/2023, there is no significant change.� Mean pressure gradient across TAVR� is increased from 6 mmHg to 11 mmHg.
Subjective
Procedure
s/p R TF TAVR w/ placement of 29mm Medtronic EVOLUT FX (single deployment) on 09/04/23
-
Date of Service: September 07, 2023
No acute overnight events
Objective Data
-
Lab Results
09/07/23 03:11
09/07/23 03:11
PT 17.5 Sec (11.4-14.6) H 08/28/23 12:46
INR 1.42 08/28/23 12:46
APTT 42.0 Sec (23.4-35.0) H 08/28/23 12:46
Vital Signs
Vital Signs
Temp Pulse Resp BP Pulse Ox
98.2 F 82 18 111/67 98
09/06/23 21:51 09/06/23 20:00 09/06/23 21:51 09/06/23 21:44 09/06/23 21:51
CT Intake/Output/Weight
09/06/23 09/06/23 09/07/23
06:59 18:59 06:59
Intake Total 480 / 480
Balance 480 / 480
SaO2: 98
Physical Exam
-
General: Awake, Oriented and AOx3
Cardiovascular: Regular rate & rhythm and No Murmurs
Respiratory: Clear and Equal
Incision: Clean, Dry and Intact
Extremities: Edema +1
Data Reviewed
-
Lab Results: Results Reviewed
Medications: Active Meds Reviewed
Chest X-Ray: Report Reviewed
ECG: Report Reviewed
[2023-09-07 06:00] VITALS: BMI 24.0
[2023-09-07] MEDS: SYNTHROID 50 MCG PO (06:25)
[2023-09-07] MEDS: THERAGRAN 1 TABLET PO (07:07)
[2023-09-07] MEDS: LASIX 40 MG PO (07:07)
[2023-09-07] MEDS: PROTONIX 40 MG PO (07:07)
[2023-09-07] MEDS: NEURONTIN 200 MG PO (07:08)
[2023-09-07] MEDS: CARDIZEM CD 120 MG PO (07:12)
[2023-09-07] MEDS: LAMICTAL 50 MG PO (07:12)
[2023-09-07 07:16] VITALS: BP 116/72
--- NOTE | 2023-09-07 08:02 | W.DCSUMMARY ---
Discharge Summary
Discharge Data
Date of Admission: 09/04/23
Date of Discharge: 09/07/23
Total time spent discharging patient (in min): 33
-
Pending Results: No
Hospital Course
Primary care physician:� Sandra Gomez
Outpatient claims investigator:� Damaris Hassan
Inpatient consultants:� [facility] Cardiology
Procedures:�
1.� Right transfemoral aortic valve replacement #29 Medtronic Evolute FX
Primary Diagnosis:�
1.� Severe aortic stenosis
Secondary Diagnoses:�
1.� Chronic atrial fibrillation status post cardioversion and ablation x 2 on Xarelto at home
2.� Hypothyroidism
3.� Anxiety
4.� Gastro esophageal reflux disease
HPI:� Denisa Mccullough is a 78-year-old female electively admitted 09/04/2023 for Transcatheter aortic valve replacement.
Hospital course:� Mrs. Mccullough underwent right transfemoral TAVR #29 Medtronic Evolute FX with Dr. Escobar using conscious sedation.� Patient initially on Levophed and was weaned off in the PACU.� Patient had urinary retention requiring straight
cathed for 600 cc.� Patient did develop new right bundle branch block and has old first-degree AV block.� Patient able to urinate spontaneously on 09/05.� Hemoglobin decreased from 8 9 preop to 7.4 requiring transfusion with 1 unit packed red blood
cells. On post-op day #1, patient was found to be bradycardic so cardiology placed a medtronic PPM. follow TTE post TAVR showed that the valve was well seat with peak/mean gradients across the aortic valve of 22/11mmHg. On post-op day #2,� pacer and
b/l groin sites were stable, hemoglobin was stable this am. She was restarted on all her home medications except her Xarelto. Her discharge was delayed secondary to cardiology recommendations. On post-op day #3, her PPM was reinterrogated and
patient was stable for discharge.
Home medication changes:�
none
Discharge Plan
-
Patient Disposition: Home (Routine Discharge)
Discharge Diagnosis/Procedures: TF TAVR, Pacemaker
Condition: Fair
Diet: Low Fat and 2 Gram Sodium
Activity: As tolerated
Driving Restrictions: No driving for 1 week
Bathing Restrictions: OK to Shower
Others Tests: Please schedule 30-day follow up echo with Dr. Hayes's office.
Other Services: Cardiac Rehab
Wound Care: No lotions, powders, or creams to puncture sites
Specialty Instructions: Weigh Daily- Call MD for wt gain/loss 3 lbs overnight/5 lbs in 1 week
Activity Restrictions/Additional Instructions:
Resume Xarelto on Friday
Call to make appointments for Phase II Cardiac Rehab at [facility] [email or web address]
Stand Alone Forms: DC Inst - Implanted Device
Referrals:
CT Transitional Care Nurse [Outside] (The Cardiothoracic Transitional Care Nurse will call you to set up a visit in 1-2 days.)
Damaris Hassan MD [Non-Admitting Privileges] - 10/14/23 7:40 am
SANDRA GOMEZ MD [Family Provider] -
Prescriptions:
Continued
furosemide 40 mg Tablet
40 mg PO BID
rabeprazole 20 mg Tablet,Delayed Release (Dr/Ec)
20 mg PO BID
famotidine 40 mg Tablet
40 mg PO HS
lamotrigine [Lamictal] 25 mg Tablet
25 mg PO QPM
levothyroxine 50 mcg Tablet
50 mcg PO DAILY
buspirone 7.5 mg Tablet
7.5 mg PO TID
diltiazem HCl [Cartia XT] 120 mg Capsule,Extended Release 24hr
120 mg PO DAILY
Rx Instructions:
120/24 HR cap
gabapentin 100 mg Capsule
200 mg PO TID
fluticasone propionate [Flonase Allergy Relief] 50 mcg/actuation [place],Suspension
1 spray INTRANASAL BID
amiodarone 100 mg Tablet
100 mg PO QPM
azelastine-fluticasone 137-50 mcg/spray [place],Non-Aerosol
1 spray INTRANASAL BID
multivitamin Tablet
1 tab PO DAILY
hydroxyzine HCl 50 mg Tablet
100 mg PO DAILYPRN PRN (Reason: anxiety)
cholecalciferol (vitamin D3) [Vitamin D3] 50 mcg (2,000 unit) Capsule
50 mcg PO DAILY
Probiotic
1 tab PO DAILY
lamotrigine 25 mg Tablet
50 mg DAILY
Systane (PF) drops
1 drp BOTH EYES QID PRN (Reason: dry eye)
Rx Instructions:
to both eyes for dry eye
Held
Xarelto 15 mg Tablet
15 mg PO QPM
Hold Instructions: Resume on 09/07/23. Restart friday
Discharge Orders:
Discharge Patient (As Directed); Ordered 09/07/23
Ordered By: Angela Hou
Care Plan Goals
Care Plan Goals:
Problem: Readiness for enhanced knowledge related to diagnosis and treatment plan
Goal: Understand your diagnosis and treatment plan needs, including medications if applicable.
Instructions: Know your diagnosis, underlying causes and treatment plan options, including medications if applicable. Consult with your health care team to learn about your diagnosis and treatment plan, including medications if applicable.
[2023-09-07] MEDS: SENOKOT-S 1 TABLET PO (08:29)
[2023-09-07] MEDS: VITAMIN D3 (cholecalciferol) 50 MCG PO (09:14)
--- NOTE | 2023-09-07 11:25 | W.PN.UPDATE ---
Update Note
Progress Note Update
Pacer site is good.
Tele is very good. No loss of capture. No AFib. Loss of the narrower QRS was at 2306 last night
The runs were PMT. Despite antegrade heart block (present today) she has intact retrograde conduction
PVARP increased and PMT intervention turned on and max track lowered to 110. Sensor max rate still at 130
Pacer RV thresholds less than 1 V in uni and biplor mode today. RV bipolar imp 475 and unipolar imp stable at 361
4 EKGs today: 1.5 V/uni and bipolar and 5 V uni and bipolar all had same QRS morphology of LBBB without Qr and QRS of 134-140 ms
Tele reviewed and one PAC with what looks like [place] RBBB conduction seen yesterday
Best explanation for the narrower QRS EKG morphology is intermittent AV conduction resulting in fusion
At bedside at the time of the EKGs today she had complete heart block and is pacemaker dependent (retrograde conduction present).
Reviewed with patient and CT surgery.
OK for home.
--- NOTE | 2023-09-07 14:10 | PTCARENOTE ---
Pt received this am with no c/o other than mild left chest pacer site discomfort. Medicated with tylenol 650mg po as ordered with relief. Pt ambulating with the quad cane. Gait steady in the room and walked in the hallway with nurse. Pt discharged
to home with her daughter. Discharge instructions given and reviewed with pt and daughter. Pt verbalized complete understanding.
== END 2023-09-07 14:30 | disposition home or self-care (01) | DRG 267 ==
LOC: IVU 07:20
PROVIDERS: Clinical Nurse Specialist Acute Care; Internal Medicine Cardiovascular Disease; Physician Assistant Medical; ADMITTING PHYSICIAN Thoracic Surgery (Cardiothoracic Vascular Surgery); CONSULT PHYSICIAN Internal Medicine Cardiovascular Disease; FAMILY PHYSICIAN General Practice
PROC: 02RF38Z Replacement of Aortic Valve with Zooplastic Tissue, Percutaneous Approach (ICD-10-PCS; 2023-09-04)
PROC: 02H63JZ Insertion of Pacemaker Lead into Right Atrium, Percutaneous Approach (ICD-10-PCS; 2023-09-05)
PROC: 0JPT02Z Removal of Monitoring Device from Trunk Subcutaneous Tissue and Fascia, Open Approach (ICD-10-PCS; 2023-09-05)
PROC: 30233N1 Transfusion of Nonautologous Red Blood Cells into Peripheral Vein, Percutaneous Approach (ICD-10-PCS; 2023-09-05)
PROC: 02HK3JZ Insertion of Pacemaker Lead into Right Ventricle, Percutaneous Approach (ICD-10-PCS; 2023-09-05)
PROC: 0JH606Z Insertion of Pacemaker, Dual Chamber into Chest Subcutaneous Tissue and Fascia, Open Approach (ICD-10-PCS; 2023-09-05)
DX: I08.0 Rheumatic disorders of both mitral and aortic valves (principal); Z00.6 Encounter for examination for normal comparison and control in clinical research program; D62 Acute posthemorrhagic anemia; I48.20 Chronic atrial fibrillation, unspecified; I50.32 Chronic diastolic (congestive) heart failure; I44.1 Atrioventricular block, second degree; R00.1 Bradycardia, unspecified; I45.10 Unspecified right bundle-branch block; R33.9 Retention of urine, unspecified; I49.3 Ventricular premature depolarization; I49.1 Atrial premature depolarization; E03.9 Hypothyroidism, unspecified; F41.9 Anxiety disorder, unspecified; F32.A Depression, unspecified; I25.10 Atherosclerotic heart disease of native coronary artery without angina pectoris; K21.9 Gastro-esophageal reflux disease without esophagitis; H91.90 Unspecified hearing loss, unspecified ear; M19.90 Unspecified osteoarthritis, unspecified site; Z87.891 Personal history of nicotine dependence; Z79.01 Long term (current) use of anticoagulants; Z79.82 Long term (current) use of aspirin
CPT/HCPCS: 93308; 33208; 33286; 33361; 36415; 71045; 71046; 80048; 80053; 81003; 81015; 82248; 83036; 83735; 83880; 85025; 85027; 85347; 85610; 85730; 86850; 86900; 86901; 86920; 87070; 87077; 87086; 87186; 93005; 93306; 93321; 93325; C1760; C1769; C1785; C1887; C1892; C1894; C1898; P9016; Q9967

== ENCOUNTER 2023-09-16 12:16 | Emergency (ER) | payer MEDICARE, BC, SELFPAY ==
[2023-09-16 12:30] VITALS: BP 132/87
[2023-09-16 13:10] LABS: % Basophils 0.9 % (0-2); % Eosinophils 2.4 % (0-6); % Immature Granulocytes 0.9 % (0-0.5); % Lymphocytes 19.2 % (20.5-51.1); % Monocytes 9.2 % (1.7-9.3); % Neutrophils 67.4 % (42.2-75.2); Absolute Basophils 0.1 10^3/uL (0-0.2); Absolute Eosinophils 0.2 10^3/uL (0-0.7); Absolute Immature Granulocytes 0.1 10^3/uL (0-0.05); Absolute Lymphocytes 1.8 10^3/uL (1.2-3.4); Absolute Monocytes 0.9 10^3/uL (0.1-0.6); Absolute Neutrophils 6.4 10^3/uL (1.4-6.5); Hematocrit 33.2 % (37.0-47.0); Hemoglobin 10.6 g/dL (12.0-16.0); Mean Corp Hgb Conc. 31.9 g/dL (33.0-37.0); Mean Corpuscular Hgb 27.2 pg (27.0-31.0); Mean Corpuscular Volume 85.3 fL (81.0-99.0); Mean Platelet Volume 9.3 fL (7.4-10.4); Nucleated Red Blood Cells % 0 %; Platelet Count 249 10^3/uL (130-400); Red Blood Cell Count 3.89 10^6/uL (4.20-5.40); Red Cell Dist. Width 15.1 % (11.5-14.5); White Blood Cell Count 9.5 10^3/uL (4.8-10.8)
[2023-09-16 13:21] LABS: D-Dimer 0.66 ug/mlFEU (0.00-0.50)
[2023-09-16 13:24] LABS: ALT (SGPT) 21 U/L (0-35); AST (SGOT) 35 U/L (14-36); Albumin 3.7 g/dl (3.5-5.0); Alkaline Phosphatase 153 U/L (38-126); Blood Urea Nitrogen 13 mg/dl (7-17); Calcium 8.8 mg/dl (8.4-10.2); Carbon Dioxide 28 mmol/L (22-30); Chloride 100 mmol/L (98-107); Glucose 91 mg/dl (70-99); Potassium 4.2 mmol/L (3.5-5.1); Sodium 134 mmol/L (135-145); Total Bilirubin 0.5 mg/dl (0.2-1.3); Total Protein 6.3 g/dl (6.3-8.2); eGFR > 60.00
[2023-09-16 13:34] LABS: NT-proBNP 501 pg/ml; Troponin I < 0.012 ng/ml
[2023-09-16 13:37] LABS: Urine Albumin Negative (Neg - Trace); Urine Bilirubin Negative (Negative); Urine Character Clear (Clear); Urine Color Yellow; Urine Glucose Negative (Negative); Urine Ketone Negative (Negative); Urine Leukocyte Negative (Negative); Urine Nitrite Negative (Negative); Urine Occult Blood Negative (Negative); Urine Urobilinogen Negative (Neg - 1+); Urine pH 6.5 (5.0-9.0)
--- NOTE | 2023-09-16 13:54 | ED.GENMED ---
History of Present Illness
General
Chief Complaint: Cardiac Symptoms
Source: patient
Exam Limitations: none
Time Seen by Provider: 09/16/23 13:51
Nursing documentation reviewed up to this point in time: agreed with
Travel History
Have you had any contact with someone who has COVID-19?: No
Do you have any symptoms of coronavirus? Fever > 100 degrees, chills, cough, shortness of breath, sore throat, loss of taste or smell, muscle aches, or headache?: No
History of Present Illness
History of Present Illness:
78-year-old female with a past medical history of A-fib on Eliquis, aortic stenosis status post TAVR, presenting today with persistent shortness of breath and weakness following her TAVR and pacemaker placement 2 weeks ago. She states that ever
since she has been home, her shortness of breath has been worsening. It occurs at rest and with exertion. It will occur randomly. She also has some associated midline chest pain which is also been on and off for the past few days. She also has
associated generalized weakness. She denies nausea, vomiting, abdominal pain, diarrhea. She states that the last time she went into afib was 3 years ago and she states that this feels similar to that time. She denies syncopal episodes,
lightheadedness. Denies dysarthria, dysphagia, confusion.
Review of Systems
Review of Systems
All Other Systems: ROS reviewed and negative except as documented in HPI and ROS
Phy Exam
Physical Exam
Physical Exam:
General: Pt is awake and alert. No acute distress.
Skin: Warm, dry, and intact without rashes or lesions. No pallor, jaundice, erythema, or cyanosis. Nail beds are without cyanosis or clubbing.
Cardiac: On palpation, the external chest is without lifts, heaves, thrills, or tenderness. RRR.
PV: No clubbing/cyanosis/edema. Pulses: DP and PT 2+ bilaterally.
Pulmonary: Lung sounds are clear in all lobes bilaterally without rales, rhonchi, or wheezes.
Abdomen: Abdomen is soft, symmetric, and non-tender without distention. There are no visible lesions or scars.
Neuro: Patient is AAOx3. CN 2-12 intact. No involuntary movements noted.
Course
Orders/Labs/Results
Orders:
Orders
09/16/23 12:37
Electrocardiogram (*1) Urgent
Reason for Study: Shortness of Breath
EKG- Treatment ONCE
09/16/23 12:53
CMP [Comprehensive Metabolic Panel] Urgent
Complete Blood Count/With Diff Urgent
D-Dimer Urgent
Free T4 Urgent
NT-proBNP Urgent
TSH Reflex To Free T4 Urgent
Comment: ADD ON
Troponin I Urgent
09/16/23 13:22
Urinalysis Reflex To Culture Urgent
Date Specimen was Collected: 09/16/23
Time Specimen was Collected: 13:21
09/16/23 14:29
CR Chest - 2 Views Urgent
Comment:
Reason For Exam: shortness of breath, chest pain
09/16/23 14:39
Add On- LAB Urgent
Tests Added?: TSH, reflex T4
09/16/23 15:19
Echo Follow up Study W Dop Urgent
Reason for Study: SOB TAVR
Cardiology Consult: Jordin King
Comment: LJ MODIFIED
Abnormal Lab Results
09/16/23
12:53
RBC 3.89 L 10^6/uL
(4.20-5.40)
Hgb 10.6 L g/dL
(12.0-16.0)
Hct 33.2 L %
(37.0-47.0)
MCHC 31.9 L g/dL
(33.0-37.0)
RDW 15.1 H %
(11.5-14.5)
Abs Immat Gran (auto) 0.1 H 10^3/uL
(0-0.05)
Absolute Monos (auto) 0.9 H 10^3/uL
(0.1-0.6)
Immature Gran % 0.9 H %
(0-0.5)
Lymphocytes % 19.2 L %
(20.5-51.1)
D-Dimer 0.66 H ug/mlFEU
(0.00-0.50)
Sodium 134 L mmol/L
(135-145)
Alkaline Phosphatase 153 H U/L
(38-126)
TSH (Reflex) 5.22 H uIU/ml
(0.47-4.68)
09/16/23 12:53
09/16/23 12:53
Vital Signs
Initial and Last Documented VS:
Initial Vital Signs
Temp Pulse Resp BP Pulse Ox
97.9 F 74 16 132/87 96
09/16/23 12:30 09/16/23 12:30 09/16/23 12:30 09/16/23 12:30 09/16/23 12:30
Last Documented Vital Signs
Temp Pulse Resp BP Pulse Ox
97.9 F 76 13 139/82 98
09/16/23 12:30 09/16/23 17:30 09/16/23 17:30 09/16/23 17:00 09/16/23 17:30
MDM/Problems Addressed
Differential Diagnosis Includes:
Differentials include A-fib, acute CHF, ACS, URI, deconditioning
MDM/Problems Addressed:
shortness of breath
chest pain
Chronic conditions affecting care: HTN, CAD and Arrhythmia
Acute Exacerbation and/or Progression of Chronic Illness: HTN
*Radiology
Radiology exam reviewed: preliminary read by ED provider (no acute cardiopulmonary process, pacer lines in place)
*Pulse Oximetry
Patient hypoxic: no
*EKG
Interpreted by ED Provider?: Yes
EKG Intrepretation Date: 09/16/23
Interpretation: normal
Comparison EKG: no changes
Heart Rate: 71
Rate: normal
Rhythm: other
Conrad: indeterminate
Ischemia: no ischemia
*Critical Care Note
Total Time (30-74mins, 75-104mins- exclusive of procedures): Not Applicable
Data Reviewed
Review of Other/Old Records Reveals: Records (reviewed cardiology update notes ) and Discharge Summary (reviewed discharge summary from 09/06/23)
Patient Management
Escalation/DeEscalation of care consider admission/obs:
78-year-old female with a past medical history of A-fib on Eliquis, aortic stenosis status post TAVR, presenting today with persistent shortness of breath and weakness following her TAVR and pacemaker placement 2 weeks ago. Patient was discharged
from [facility] on 09/07/23. Patient states that she fees like she is in afib. Here in the ER, her CMP and CBC are unremarkable and her EKG does not demonstrate afib. Her pacemaker interrogation did not show any dysrhythmias since placement.
Her pacemaker lines were in place on her CXR. Her troponin was normal. Reviewed case with Dr. King who recommended possible ECHO study. ECHO cardiogram in the emergency department remains unchanged from previous studies. I suspect patients current
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 Patient aware of plan and medically stable for discharge.
ED Attending Note
-
Portions of this chart may have been created with voice recognition software.� Occasional wrong word or��sound alike� substitutions may have occurred due to the inherent limitations of voice recognition software.
Discharge Plan
Departure
Patient Disposition: Home (Routine Discharge)
Date of Disposition: 09/16/23
Time of Disposition: 17:40
Patient with high blood pressure during this ER visit?: Yes
Condition: Good
Discharge Problem:
Shortness of breath
Instructions: Chest Pain (DC), Shortness of breath (dyspnea), BLOOD PRESSURE
Prescriptions:
No Action
furosemide 40 mg Tablet
40 mg PO BID
rabeprazole 20 mg Tablet,Delayed Release (Dr/Ec)
20 mg PO BID
famotidine 40 mg Tablet
40 mg PO HS
lamotrigine [Lamictal] 25 mg Tablet
25 mg PO QPM
levothyroxine 50 mcg Tablet
50 mcg PO DAILY
buspirone 7.5 mg Tablet
7.5 mg PO TID
diltiazem HCl [Cartia XT] 120 mg Capsule,Extended Release 24hr
120 mg PO DAILY
Rx Instructions:
120/24 HR cap
gabapentin 100 mg Capsule
200 mg PO TID
fluticasone propionate [Flonase Allergy Relief] 50 mcg/actuation [place],Suspension
1 spray INTRANASAL BID
amiodarone 100 mg Tablet
100 mg PO QPM
Xarelto 15 mg Tablet
15 mg PO QPM
Hold Instructions: Resume on 09/07/23. Restart friday night
azelastine-fluticasone 137-50 mcg/spray [place],Non-Aerosol
1 spray INTRANASAL BID
multivitamin Tablet
1 tab PO DAILY
hydroxyzine HCl 50 mg Tablet
100 mg PO DAILYPRN PRN (Reason: anxiety)
cholecalciferol (vitamin D3) [Vitamin D3] 50 mcg (2,000 unit) Capsule
50 mcg PO DAILY
Probiotic
1 tab PO DAILY
lamotrigine 25 mg Tablet
50 mg DAILY
Systane (PF) drops
1 drp BOTH EYES QID PRN (Reason: dry eye)
Rx Instructions:
to both eyes for dry eye
Referrals:
Jordin King MD [Active] - None
KANDI GOMEZ MD [Family Provider] -
Activity Restrictions/Additional Instructions:
Please return emergency department should he experience any acute worsening of her symptoms, new or worsening pain, fainting spells, or other concerning signs or symptoms.
Please follow-up with your [facility] [employer] and please make an appointment to see your primary care provider.
I have attached a number for our cardiology team should you not be able to see your [facility] lightning rod erector.
Interventions
Interventions:
*Risk Screen - Suicide Last Done: 09/16/23 14:06
*General Assessment Last Done: 09/16/23 15:30
*Neglect/Abuse Screening Last Done: 09/16/23 13:57
ED- Fall Risk Assessment Last Done: 09/16/23 16:03
*ED COVID-19 Vaccine History Last Done: 09/16/23 12:30
*Nursing Disposition Last Done: 09/16/23 17:57
ED- Pulmonary Assessment Last Done: 09/16/23 16:03
ED- Cardiac Assessment Last Done: 09/16/23 14:07
Discharge Date and Time
Discharge Date/Time: 09/16/23 18:02
[2023-09-16 15:33] VITALS: BP 146/90
[2023-09-16 16:00] VITALS: BP 166/91
[2023-09-16 16:21] LABS: TSH Reflex To Free T4 5.22 uIU/ml (0.47-4.68)
[2023-09-16 17:00] VITALS: BP 139/82
== END 2023-09-16 18:02 | disposition home or self-care (01) ==
LOC: EMR 12:16
PROVIDERS: Emergency Medicine; EMERGENCY PHYSICIAN Emergency Medicine; FAMILY PHYSICIAN General Practice
DX: R06.02 Shortness of breath (principal); I10 Essential (primary) hypertension; I25.10 Atherosclerotic heart disease of native coronary artery without angina pectoris; Z95.0 Presence of cardiac pacemaker; Z95.2 Presence of prosthetic heart valve; Z79.01 Long term (current) use of anticoagulants; I48.91 Unspecified atrial fibrillation
CPT/HCPCS: 99285; 93308; 71046; 80053; 81003; 83880; 84439; 84443; 84484; 85025; 85379; 93005; 93321; 93325